=== PATIENT | male | born 1960 | race Caucasian/White ===

== ENCOUNTER 2017-04-02 08:50 | Emergency (ER) | payer OTHER ==
[2017-04-02] MEDS ORDERED: NORMAL SALINE 1000 ML 1,000 ML IV ONE (09:58)
[2017-04-02] MEDS ORDERED: FENTANYL CITRATE INJ/PF 100 MCG/2 ML AMPUL IV ONE ×2 (09:59→13:55)
[2017-04-02] MEDS ORDERED: ONDANSETRON HCL INJ/PF 4 MG/2 ML SDV IV ONE (10:00)
--- NOTE | 2017-04-02 10:02 | ER Document Report ---
ED General - General Chief Complaint: Abdominal Pain Stated Complaint: ABDOMINAL PAIN Time Seen by Provider: 04/02/17 09:51 Mode of Arrival: Ambulatory Information source: Patient Notes: Patient is a 57 year old male with a history of kidney stones presents to the emergency department complaining of right flank pain with an associated symptoms of nausea onset last night around 20:30. Patient states the pain is exacerbated with movement and bowel movements. Patient denies any strenuous activity, vomiting, hematuria, dysuria, or blood in stool. TRAVEL OUTSIDE OF THE [place] IN LAST 30 DAYS: No - Related Data Allergies/Adverse Reactions: No Known Allergies Allergy (Unverified 04/02/17 08:53) Past Medical History - General Information source: Patient - Social History Smoking Status: Unknown if Ever Smoked Review of Systems - Review of Systems Constitutional: No symptoms reported EENT: No symptoms reported Cardiovascular: No symptoms reported Respiratory: No symptoms reported Gastrointestinal: See HPI Genitourinary: See HPI, Flank pain Male Genitourinary: No symptoms reported Musculoskeletal: No symptoms reported Skin: No symptoms reported Hematologic/Lymphatic: No symptoms reported Neurological/Psychological: No symptoms reported -: Yes All other systems reviewed and negative Physical Exam - Vital signs Vitals: Temp Pulse Resp BP Pulse Ox 98.6 F 76 16 153/96 H 96 04/02/17 09:15 04/02/17 09:15 04/02/17 09:15 04/02/17 09:15 04/02/17 09:15 - Notes Notes: GENERAL: Alert, interacts well. No acute distress. HEAD: Normocephalic, atraumatic. EYES: Appear normal. Pupils equal, round, and reactive to light. ENT: Moist mucus membranes, tongue midline. NECK: Full range of motion. Supple. Trachea midline. LUNGS: Clear to auscultation bilaterally, no wheezes, rales, or rhonchi. No respiratory distress. HEART: Regular rate and rhythm. No murmurs, gallops, or rubs. EXTREMITIES: Moves all 4 extremities spontaneously. Normal strength. No edema. NEUROLOGICAL: Alert and oriented x3. Normal speech. PSYCH: Normal affect, normal mood. SKIN: Warm, dry, normal turgor. No rashes or lesions noted. BACK: Tender to palpation to lateral aspect of right flank. Course - Vital Signs Vital signs: Temp Pulse Resp BP Pulse Ox 98.6 F 76 16 153/96 H 96 04/02/17 09:15 04/02/17 09:15 04/02/17 09:49 04/02/17 09:15 04/02/17 09:15 - Laboratory Result Diagrams: 04/02/17 10:08 04/02/17 10:08 Laboratory results interpreted by me: 04/02/17 04/02/17 04/02/17 10:08 10:08 10:08 RDW 14.8 H Calcium 10.4 H AST 88 H ALT 129 H Lipase Urine Ascorbic Acid 20 H 04/02/17 10:08 RDW Calcium AST ALT Lipase 2164.4 H Urine Ascorbic Acid Scribe Documentation - Scribe Written by Adam:: Adam Al, 04/02/2017 10:03 acting as scribe for :: Manny
[2017-04-02 10:37] LABS: ABSOLUTE EOSINOPHILS # (AUTO) 0.3 10^3/uL (0.0-0.6); ABSOLUTE LYMPHOCYTES (AUTO) 2.9 10^3/uL (0.5-4.7); ABSOLUTE MONOCYTES (AUTO) 0.5 10^3/uL (0.1-1.4); ABSOLUTE NEUT (AUTO) 3.7 10^3/uL (1.7-8.2); BASOPHILS % (AUTO) 0.5 % (0-2); EOSINOPHILS % (AUTO) 3.6 % (0-6); HEMATOCRIT 45.9 % (37.9-51.0); HEMOGLOBIN 15.4 g/dL (13.5-17.0); LYMPHOCYTES % (AUTO) 38.9 % (13-45); MEAN CORPUSCULAR HEMOGLOBIN 28.1 pg (27.0-33.4); MEAN CORPUSCULAR HGB CONC 33.5 g/dL (32.0-36.0); MEAN CORPUSCULAR VOLUME 84 fl (80-97); MONOCYTES % (AUTO) 6.4 % (3-13); PLATELET COUNT 201 10^3/uL (150-450); RED BLOOD COUNT 5.47 10^6/uL (4.35-5.55); RED CELL DISTRIBUTION WIDTH 14.8 % (11.5-14.0); SEGMENTED NEUTROPHILS % (AUTO) 50.6 % (42-78); TOTAL CELLS COUNTED % (AUTO) 100 %; WHITE BLOOD COUNT 7.3 10^3/uL (4.0-10.5)
[2017-04-02 10:43] LABS: APPEARANCE,URINE SLIGHTLY-CLOUDY; BILIRUBIN,URINE NEGATIVE (NEGATIVE); COLOR,URINE YELLOW; GLUCOSE, URINE NEGATIVE (NEGATIVE); KETONES,URINE NEGATIVE (NEGATIVE); LEUKOCYTE ESTERASE,URINE NEGATIVE (NEGATIVE); NITRITE,URINE NEGATIVE (NEGATIVE); PROTEIN,URINE NEGATIVE (NEGATIVE); URINE SPECIFIC GRAVITY 1.014; UROBILINOGEN,URINE NEGATIVE mg/dL (<2.0)
[2017-04-02 11:01] LABS: ALANINE AMINOTRANSFERASE 129 U/L (21-72); ALBUMIN 4.9 g/dL (3.5-5.0); ALKALINE PHOSPHATASE 62 U/L (38-126); ANION GAP 10 (5-19); ASPARTATE AMINO TRANSFERASE 88 U/L (17-59); BILIRUBIN,DIRECT 0.4 mg/dL (0.0-0.4); BILIRUBIN,TOTAL 0.5 mg/dL (0.2-1.3); BLOOD UREA NITROGEN 14 mg/dL (7-20); CALCIUM 10.4 mg/dL (8.4-10.2); CARBON DIOXIDE 29 mmol/L (22-30); CHLORIDE 106 mmol/L (98-107); GLUCOSE 102 mg/dL (75-110); POTASSIUM 4.5 mmol/L (3.6-5.0); SODIUM 144.6 mmol/L (137-145)
--- NOTE | 2017-04-02 12:11 | RADIOLOGY REPORT (SQ) ---
EXAM DESCRIPTION: CT ABD/PELVIS WITH IV ONLY COMPLETED DATE/TIME: 04/02/2017 11:45 am REASON FOR STUDY: R flank pain radiating to groin COMPARISON: None. TECHNIQUE: CT scan of the abdomen and pelvis performed using helical scanning technique with dynamic intravenous contrast injection. No oral contrast. Images reviewed with lung, soft tissue, and bone windows. Reconstructed coronal and sagittal MPR images reviewed. Delayed images for evaluation of the urinary system also acquired. All images stored on PACS. All CT scanners at this facility use dose modulation, iterative reconstruction, and/or weight based d osing when appropriate to reduce radiation dose to as low as reasonably achievable (ALARA). [facility]: Dose Right [facility]: CareDose [facility]: Dose Right [facility]: Teradose 4D [facility]: [facility] CONTRAST TYPE AND DOSE: contrast/concentration: Isovue 370.00 mg/ml; Total Contrast Delivered: 100.0 ml; Total Saline Delivered: 70.0 ml RENAL FUNCTION: BUN 14 creatinine 1.09. RADIATION DOSE: CT Rad equipment meets quality standard of care and radiation dose reduction techniq ues were employed. CTDIvol: 14.3 - 18.6 mGy. DLP: 1927 mGy-cm.. LIMITATIONS: None. FINDINGS: LOWER CHEST: No significant findings. No nodules or infiltrates. LIVER: Normal size. Marked diffuse fatty infiltration. No masses. No dilated ducts. SPLEEN: Normal size. No focal lesions. PANCREAS: No masses. No significant calcifications. No adjacent inflammation or peripancreatic fluid collections. Pancreatic duct not dilated. GALLBLADDER: No identified stones by CT criteria. No inflammatory changes to suggest cholecystitis. ADRENAL GLANDS: No significant masses or asymmetry. RIGHT KIDNEY AND URETER: No solid masses. No significant calcifications. No hydronephrosis or hyd roureter. LEFT KIDNEY AND URETER: No solid masses. No significant calcifications. No hydronephrosis or hydr oureter. AORTA AND VESSELS: No aneurysm. No dissection. Renal arteries, SMA, celiac without stenosis. RETROPERITONEUM: No retroperitoneal adenopathy, hemorrhage or masses. BOWEL AND PERITONEAL CAVITY: No masses or inflammatory changes. No free fluid or peritoneal masses. APPENDIX: Normal. PELVIS: No mass. Heterogenous nodular appearance of the prostate with a few calcifications. No free fluid. Normal bladder. ABDOMINAL WALL: No masses. No hernias. BONES: No significant or acute findings. OTHER: No other significant finding. IMPRESSION: 1. MARKED DIFFUSE FATTY INFILTRATION OF THE LIVER. 2. NONSPECIFIC HETEROGENOUS NODULAR APPEARANCE OF THE PROSTATE. 3. NO OTHER SIGNIFICANT OR ACUTE FINDING IN THE ABDOMEN OR PELVIS ON CT SCAN WITH IV CONTRAST. TECHNICAL DOCUMENTATION: JOB ID: [id number] Quality ID # [id number]: Final reports with documentation of one or more dose reduction techniques (e.g., Au tomated exposure control, adjustment of the mA and/or kV according to patient size, use of iterative reconstruction technique) 2010 [employer]- All Rights Reserved
--- NOTE | 2017-04-02 12:42 | ER Document Report ---
ED GI/ - General Chief Complaint: Abdominal Pain Stated Complaint: ABDOMINAL PAIN Time Seen by Provider: 04/02/17 09:51 Mode of Arrival: Ambulatory Information source: Patient TRAVEL OUTSIDE OF THE [place] IN LAST 30 DAYS: No - HPI Patient complains to provider of: Flank pain - RIGHT Onset: Yesterday - LAST PM Timing/Duration: Sudden Quality of pain: Dull Severity at maximum: Moderate Severity in ED: Moderate Context: denies: Bad food, Lifting, Out of the country travel, Recent trauma Location: Right flank Associated symptoms: Nausea. denies: Chills, Constipation, Diarrhea, Fever, Vomiting Exacerbated by: Coughing, Other - VALSALVA Relieved by: Remaining still Similar symptoms previously: No - A LITTLE SIMILAR TO "KIDNEY STONE" Recently seen / treated by doctor: No - Related Data Allergies/Adverse Reactions: No Known Allergies Allergy (Unverified 04/02/17 08:53) Past Medical History - General Information source: Patient - Social History Smoking Status: Unknown if Ever Smoked Chew tobacco use (# tins/day): No Frequency of alcohol use: None Drug Abuse: Marijuana Lives with: Spouse/Significant other Family History: None Patient has suicidal ideation: No Patient has homicidal ideation: No - Past Medical History Cardiac Medical History: Reports: None Pulmonary Medical History: Reports: None EENT Medical History: Reports: None Neurological Medical History: Reports: None Endocrine Medical History: Reports: None Renal/ Medical History: Reports: None. Denies: Hx Peritoneal Dialysis Malignancy Medical History: Reports None GI Medical History: Reports: Hx Gastroesophageal Reflux Disease Musculoskeltal Medical History: Reports None Psychiatric Medical History: Reports: None Past Surgical History: Reports: Hx Abdominal Surgery - LAP. FUNDOPLICATION, Hx Kidney (Renal Surgery) - kidney stents for stones, Hx Orthopedic Surgery - bilateral knees Review of Systems - Review of Systems Constitutional: No symptoms reported. denies: Chills, Fever EENT: No symptoms reported Cardiovascular: No symptoms reported Respiratory: No symptoms reported Gastrointestinal: See HPI Genitourinary: No symptoms reported Musculoskeletal: No symptoms reported Skin: No symptoms reported Neurological/Psychological: No symptoms reported Physical Exam - Vital signs Vitals: Temp Pulse Resp BP Pulse Ox 98.6 F 76 16 153/96 H 96 04/02/17 09:15 04/02/17 09:15 04/02/17 09:15 04/02/17 09:15 04/02/17 09:15 Interpretation: Hypertensive. No: Tachycardic, Tachypneic, Febrile - General General appearance: Appears well, Alert In distress: None - HEENT Head: Normocephalic Eyes: Normal Conjunctiva: Normal Ears: Normal Nasal: Normal Mouth/Lips: Normal Mucous membranes: Normal - Respiratory Respiratory status: No respiratory distress - Cardiovascular Rhythm: Regular - Abdominal Inspection: Normal Distension: No distension Bowel sounds: Hypoactive Tenderness: Tender - MILD, R. FLANK AND R.U.Q. - Back Back: Normal, Nontender - Extremities General upper extremity: Normal inspection General lower extremity: Normal inspection - Neurological Neuro grossly intact: Yes Cognition: Normal Orientation: AAOx4 - Psychological Associated symptoms: Normal affect, Normal mood - Skin Skin Temperature: Warm Skin Moisture: Dry Skin Color: Normal Skin Turgor: Elastic Course - Re-evaluation Re-evalutation: 04/02/17 15:32 Patient appears comfortable. Results of workup discussed with patient. Admission for pain control and IV hydration offered, patient declines. Risks and possible complications discussed. Patient agrees to return if worse, otherwise he will follow-up with Dr. Todd. Discussed with Dr. Todd. - Vital Signs Vital signs: Temp Pulse Resp BP Pulse Ox 98.6 F 76 16 153/96 H 96 04/02/17 09:15 04/02/17 09:15 04/02/17 09:49 04/02/17 09:15 04/02/17 09:15 - Laboratory Result Diagrams: 04/02/17 10:08 04/02/17 10:08 Laboratory results interpreted by me: 04/02/17 04/02/17 04/02/17 10:08 10:08 10:08 RDW 14.8 H Calcium 10.4 H AST 88 H ALT 129 H Lipase Urine Ascorbic Acid 20 H 04/02/17 10:08 RDW Calcium AST ALT Lipase 2164.4 H Urine Ascorbic Acid - Consults DR. TODD Time consulted: 15:20 Consulted provider: follow-up in office Discharge - Discharge Clinical Impression: Abnormal LFTs Pancreatitis, acute Qualifiers: Pancreatitis type: idiopathic Acute pancreatitis complication: unspecified Qualified Code(s): K85.00 - Idiopathic acute pancreatitis without necrosis or infection Condition: Stable Disposition: HOME, SELF-CARE Instructions: Pancreatitis ([facility]), Antinausea Medication ([facility]), Oral Narcotic Medication ([facility]), Liver Function Abnormality ([facility]) Additional Instructions: REST, DRINK PLENTY OF FLUIDS. MEDS DIRECTED. FOLLOW UP WITH DR. TODD, CALL OFFICE TOMORROW A.M. TO MAKE APPOINTMENT. RETURN TO E.R. IF YOU GET WORSE IN ANY WAY, ANY TIME. Prescriptions: Hydromorphone HCl [Dilaudid 2 Mg Tablet] 2 mg PO Q4HP PRN #10 tablet PRN Reason: For Pain Ondansetron [Zofran Odt 4 mg Tablet] 1 - 2 tab PO Q4H #10 tab.rapdis Referrals: KENIA TODD MD [ACTIVE STAFF] - Follow up as needed
[2017-04-02] MEDS ORDERED: KETOROLAC TROMETHAMINE INJ/PF 30 MG/1 ML SDV IV ONE (13:54)
--- NOTE | 2017-04-02 14:27 | RADIOLOGY REPORT (SQ) ---
EXAM DESCRIPTION: U/S ABDOMEN LIMITED W/O DOP COMPLETED DATE/TIME: 04/02/2017 2:16 pm REASON FOR STUDY: R. FLANK PAIN, ELEVATED LIPASE LFT's COMPARISON: None. TECHNIQUE: Dynamic and static grayscale images acquired of the right upper quadrant and recorded on PACS. Additional selected color Doppler and spectral images recorded. LIMITATIONS: Study limited due to acoustical interference from fat or from air in the bowel. FINDINGS: PANCREAS: Parts of the pancreas poorly seen secondary to acoustical interference from fat or from air in the bowel. LIVER: Echotexture is coarse with increased echogenicity consistent with fatty infiltration. No mass es. LIVER VASCULATURE: Normal directional flow of the main portal vein and hepatic veins. GALLBLADDER: Small amount of sludge. Normal wall thickness. No pericholecystic fluid. ULTRASOUND-DETECTED BARNHART'S SIGN: Negative. INTRAHEPATIC DUCTS AND COMMON DUCT: CBD and intrahepatic ducts normal caliber. No filling defects. INFERIOR VENA CAVA: Normal flow. AORTA: No aneurysm. RIGHT KIDNEY: Normal size. Normal echogenicity. No solid or suspicious masses. No hydronephrosis. No calcifications. PERITONEAL CAVITY AND RIGHT PLEURAL SPACE: No ascites or effusions. OTHER: No other significant finding. IMPRESSION: 1. SMALL AMOUNT OF SLUDGE IN THE GALLBLADDER. NO BILIARY DILATION OR OTHER ACUTE FINDINGS. 2. FATTY INFILTRATION OF THE LIVER. TECHNICAL DOCUMENTATION: JOB ID: [id number] [employer]- All Rights Reserved
[2017-04-02 15:50] VITALS: BP 139/98
== END 2017-04-02 15:50 | disposition home or self-care (01) ==
LOC: ER 08:50
DX: K85.00 Idiopathic acute pancreatitis without necrosis or infection (principal); R94.5 Abnormal results of liver function studies; R10.9 Unspecified abdominal pain
CPT/HCPCS: 99284; 96361; 96374; 96375; 36415; 83690; 85025; 80053; 81001; 76705; 74177; J3010; J2405; J7030

== ENCOUNTER 2017-04-03 17:33 | Observation (INO) | payer OTHER ==
--- NOTE | 2017-04-03 18:14 | ER Document Report ---
ED Medical Screen (RME) - General Chief Complaint: Abdominal Pain Stated Complaint: ABDOMINAL PAIN Time Seen by Provider: 04/03/17 18:04 Notes: This 57-year-old male patient comes emergency room complaining of severe pain in his right inferior lateral ribs. He reports coughing and making considerably worse. He was seen yesterday for similar pain in this emergency room and had a lipase just over 1999. He had a CT scan abdomen pelvis that was essentially normal sent for fatty infiltration of the liver. The pancreas showed no inflammation at all. Ultrasound of the right upper quadran showed some gallbladder sludge and fatty liver, no other abnormality. He did receive a prescription for Dilaudid that he has not filled yet, because his pain was more off and on yesterday until he coughed today. On exam at this time, there is no epigastric or mid abdominal tenderness over the pancreas area even with deep palpation. He is exquisitely tender over the right lateral inferior ribs to palpation. I have greeted and performed a rapid initial assessment of this patient. A comprehensive ED assessment and evaluation of the patient, analysis of test results and completion of the medical decision making process will be conducted by additional ED providers. TRAVEL OUTSIDE OF THE [place] IN LAST 30 DAYS: No - Related Data Allergies/Adverse Reactions: No Known Allergies Allergy (Verified 04/03/17 17:34) Past Medical History - Social History Chew tobacco use (# tins/day): No Frequency of alcohol use: None Drug Abuse: Marijuana Renal/ Medical History: Denies: Hx Peritoneal Dialysis GI Medical History: Reports: Hx Gastroesophageal Reflux Disease Past Surgical History: Reports: Hx Abdominal Surgery - LAP. FUNDOPLICATION, Hx Kidney (Renal Surgery) - kidney stents for stones, Hx Orthopedic Surgery - bilateral knees Physical Exam - Vital signs Vitals: Temp Pulse BP Pulse Ox 98.7 F 79 143/80 H 97 04/03/17 17:51 04/03/17 17:51 04/03/17 17:51 04/03/17 17:51 Course - Vital Signs Vital signs: Temp Pulse Resp BP Pulse Ox 98.7 F 79 143/80 H 97 04/03/17 17:51 04/03/17 17:51 04/03/17 17:51 04/03/17 17:51
[2017-04-03 18:38] LABS: ABSOLUTE EOSINOPHILS # (AUTO) 0.2 10^3/uL (0.0-0.6); ABSOLUTE LYMPHOCYTES (AUTO) 2.9 10^3/uL (0.5-4.7); ABSOLUTE MONOCYTES (AUTO) 0.5 10^3/uL (0.1-1.4); ABSOLUTE NEUT (AUTO) 3.7 10^3/uL (1.7-8.2); BASOPHILS % (AUTO) 0.6 % (0-2); EOSINOPHILS % (AUTO) 2.6 % (0-6); HEMATOCRIT 43.7 % (37.9-51.0); HEMOGLOBIN 14.6 g/dL (13.5-17.0); LYMPHOCYTES % (AUTO) 39.5 % (13-45); MEAN CORPUSCULAR HEMOGLOBIN 27.8 pg (27.0-33.4); MEAN CORPUSCULAR HGB CONC 33.4 g/dL (32.0-36.0); MEAN CORPUSCULAR VOLUME 83 fl (80-97); MONOCYTES % (AUTO) 7.2 % (3-13); PLATELET COUNT 195 10^3/uL (150-450); RED BLOOD COUNT 5.25 10^6/uL (4.35-5.55); RED CELL DISTRIBUTION WIDTH 14.6 % (11.5-14.0); SEGMENTED NEUTROPHILS % (AUTO) 50.1 % (42-78); TOTAL CELLS COUNTED % (AUTO) 100 %; WHITE BLOOD COUNT 7.3 10^3/uL (4.0-10.5)
[2017-04-03 18:57] LABS: ALANINE AMINOTRANSFERASE 118 U/L (21-72); ALBUMIN 4.6 g/dL (3.5-5.0); ALKALINE PHOSPHATASE 60 U/L (38-126); AMYLASE 646 U/L (30-110); ANION GAP 8 (5-19); ASPARTATE AMINO TRANSFERASE 60 U/L (17-59); BILIRUBIN,DIRECT 0.2 mg/dL (0.0-0.4); BILIRUBIN,TOTAL 0.4 mg/dL (0.2-1.3); BLOOD UREA NITROGEN 14 mg/dL (7-20); CALCIUM 10.2 mg/dL (8.4-10.2); CARBON DIOXIDE 26 mmol/L (22-30); CHLORIDE 105 mmol/L (98-107); CREATINE KINASE 270 U/L (55-170); GLUCOSE 79 mg/dL (75-110); POTASSIUM 4.4 mmol/L (3.6-5.0); SODIUM 138.8 mmol/L (137-145); TOTAL PROTEIN 7.3 g/dL (6.3-8.2)
[2017-04-03 19:17] LABS: APPEARANCE,URINE CLEAR; BILIRUBIN,URINE NEGATIVE (NEGATIVE); COLOR,URINE YELLOW; GLUCOSE, URINE NEGATIVE (NEGATIVE); KETONES,URINE NEGATIVE (NEGATIVE); LEUKOCYTE ESTERASE,URINE NEGATIVE (NEGATIVE); NITRITE,URINE NEGATIVE (NEGATIVE); PROTEIN,URINE NEGATIVE (NEGATIVE); URINE SPECIFIC GRAVITY 1.005; UROBILINOGEN,URINE NEGATIVE mg/dL (<2.0)
[2017-04-03 19:28] LABS: LIPASE 4099.1 U/L (23-300)
--- NOTE | 2017-04-03 19:43 | ER Document Report ---
ED GI/ - General Chief Complaint: Abdominal Pain Stated Complaint: ABDOMINAL PAIN Time Seen by Provider: 04/03/17 18:04 Mode of Arrival: Medic Information source: Patient Notes: Patient presents complaining of right-sided abdominal pain that had been off and on since yesterday but became constant today after he coughed. Patient states he drinks some water, choked and coughed suddenly and had a sharp pain to his lateral side. Patient denies any fever, nausea, vomiting or diarrhea. Patient denies any urinary symptoms. Patient was evaluated here yesterday and diagnosed with pancreatitis and given a prescription for pain medication. States he has not had time to go to the pharmacy to get the pain medication. TRAVEL OUTSIDE OF THE [place] IN LAST 30 DAYS: No - HPI Patient complains to provider of: Abdominal pain. No: Vomiting Onset: Yesterday Timing/Duration: Worse Quality of pain: Sharp Pain Level: 5 Location: Other - Right lateral side Associated symptoms: denies: Diarrhea, Loss of appetite, Nausea, Urinary hesitancy, Urinary frequency, Urinary retention, Vomiting Exacerbated by: Movement, Deep breathing Relieved by: Denies Similar symptoms previously: No Recently seen / treated by doctor: Yes - Related Data Allergies/Adverse Reactions: No Known Allergies Allergy (Verified 04/03/17 17:34) Past Medical History - General Information source: Patient - Social History Smoking Status: Former Smoker Chew tobacco use (# tins/day): No Frequency of alcohol use: None Drug Abuse: Marijuana Occupation: none Family History: None Patient has suicidal ideation: No Patient has homicidal ideation: No Renal/ Medical History: Denies: Hx Peritoneal Dialysis GI Medical History: Reports: Hx Gastroesophageal Reflux Disease Past Surgical History: Reports: Hx Abdominal Surgery - LAP. FUNDOPLICATION, Hx Kidney (Renal Surgery) - kidney stents for stones, Hx Orthopedic Surgery - bilateral knees Review of Systems - Review of Systems Constitutional: No symptoms reported. denies: Fever, Recent illness EENT: No symptoms reported Cardiovascular: No symptoms reported Respiratory: No symptoms reported Gastrointestinal: Abdominal pain. denies: Diarrhea, Nausea, Vomiting Genitourinary: No symptoms reported. denies: Dysuria, Flank pain Male Genitourinary: No symptoms reported Musculoskeletal: No symptoms reported. denies: Back pain Skin: No symptoms reported Hematologic/Lymphatic: No symptoms reported Neurological/Psychological: No symptoms reported Physical Exam - Vital signs Vitals: Temp Pulse BP Pulse Ox 98.7 F 79 143/80 H 97 04/03/17 17:51 04/03/17 17:51 04/03/17 17:51 04/03/17 17:51 - General General appearance: Appears well, Alert In distress: None - HEENT Head: Normocephalic Conjunctiva: Normal Nasal: Normal Mouth/Lips: Normal Mucous membranes: Normal Neck: Normal, Supple. No: Lymphadenopathy - Respiratory Respiratory status: No respiratory distress Chest status: Nontender Breath sounds: Normal Chest palpation: Tender - Right lateral lower costal tenderness with palpation. No: Subcutaneous emphysema, Ecchymosis - Cardiovascular Rhythm: Regular Heart sounds: S1 appreciated, S2 appreciated Murmur: No - Abdominal Inspection: Normal Distension: No distension Bowel sounds: Normal Tenderness: Tender - epigastric, r lateral lower costal tenderness Organomegaly: No organomegaly - Back Back: CVA tenderness - right - Extremities General upper extremity: Normal inspection, Nontender, Normal ROM General lower extremity: Normal inspection, Nontender, Normal ROM - Neurological Neuro grossly intact: Yes Cognition: Normal Conway Coma Scale Eye Opening: Spontaneous Abner Coma Scale Verbal: Oriented Abner Coma Scale Motor: Obeys Commands Abner Coma Scale Total: 15 - Psychological Associated symptoms: Normal affect, Normal mood - Skin Skin Temperature: Warm Skin Moisture: Dry Skin Color: Normal Course - Re-evaluation Re-evalutation: 04/03/17 20:00 Patient's abdominal tenderness to right lateral lower costal margin with mild tenderness to epigastric area. Patient states he has been able tolerate oral fluids without any emesis. Patient denies any fever at home. Consulted with Dr. Guzman regarding patient presentation, recommends consultation with hospitalist for admission for concern of worsening pancreatitis that is failing outpatient treatment. 04/03/17 20:[address] Lockhart who does agree to accept patient as an inpatient admission. 04/04/17 07:16 - Vital Signs Vital signs: Temp Pulse Resp BP Pulse Ox 97.5 F 71 16 138/90 H 96 04/04/17 02:27 04/04/17 02:27 04/04/17 02:27 04/04/17 02:27 04/04/17 02:27 - Laboratory Result Diagrams: 04/04/17 04:26 04/04/17 04:26 Laboratory results interpreted by me: 04/03/17 04/03/17 18:20 18:20 RDW 14.6 H AST 60 H ALT 118 H Creatine Kinase 270 H Amylase 646 H Lipase 4099.1 H 04/03/17 20:14 Labs- Entire Visit 04/03/17 04/03/17 04/03/17 18:20 18:20 18:20 WBC 7.3 RBC 5.25 Hgb 14.6 Hct 43.7 MCV 83 MCH 27.8 MCHC 33.4 RDW 14.6 H Plt Count 195 Seg Neutrophils % 50.1 Lymphocytes % 39.5 Monocytes % 7.2 Eosinophils % 2.6 Basophils % 0.6 Absolute Neutrophils 3.7 Absolute Lymphocytes 2.9 Absolute Monocytes 0.5 Absolute Eosinophils 0.2 Absolute Basophils 0.0 Sodium 138.8 Potassium 4.4 Chloride 105 Carbon Dioxide 26 Anion Gap 8 BUN 14 Creatinine 1.07 Est GFR ( Amer) > 60 Est GFR (Non-Af Amer) > 60 Glucose 79 Calcium 10.2 Total Bilirubin 0.4 Direct Bilirubin 0.2 Neonat Total Bilirubin Not Reportable Neonat Direct Bilirubin Not Reportable Neonat Indirect Bili Not Reportable AST 60 H ALT 118 H Alkaline Phosphatase 60 Creatine Kinase 270 H Total Protein 7.3 Albumin 4.6 Amylase 646 H Lipase 4099.1 H Urine Color YELLOW Urine Appearance CLEAR Urine pH 6.0 Ur Specific Eleanor 1.005 Urine Protein NEGATIVE Urine Glucose (UA) NEGATIVE Urine Ketones NEGATIVE Urine Blood NEGATIVE Urine Nitrite NEGATIVE Urine Bilirubin NEGATIVE Urine Urobilinogen NEGATIVE Ur Leukocyte Esterase NEGATIVE Urine WBC (Auto) 0 Urine RBC (Auto) 0 Urine Ascorbic Acid NEGATIVE Reviewed diagnostic test results from previous ER visit - Diagnostic Test Radiology reviewed: Reports reviewed - Reviewed radiology reports from yesterday 's ER visit Discharge - Discharge Clinical Impression: Pancreatitis, acute Qualifiers: Pancreatitis type: unspecified pancreatitis type Acute pancreatitis complication: unspecified Qualified Code(s): K85.90 - Acute pancreatitis without necrosis or infection, unspecified Abdominal pain Qualifiers: Abdominal location: unspecified location Qualified Code(s): R10.9 - Unspecified abdominal pain Condition: Stable Disposition: ADMITTED INPATIENT Admitting Provider: Hospitalist Unit Admitted: Medical Floor
[2017-04-03] MEDS ORDERED: LIDOCAINE 5% (700 MG) TRANSDERMAL ADH..PATCH TP ONE (19:52)
[2017-04-03] MEDS ORDERED: OXYCODONE-ACETAMINOPHEN 5-325 MG TABLET PO ONE (19:53)
[2017-04-03] MEDS ORDERED: HYDROMORPHONE HCL INJ/PF 2 MG/ML AMPULE IV ONE (20:04)
[2017-04-03] MEDS ORDERED: NORMAL SALINE 1000 ML 1,000 ML IV ONE (20:04)
--- NOTE | 2017-04-03 20:33 | RADIOLOGY REPORT (SQ) ---
EXAM DESCRIPTION: CHEST PA/LAT COMPLETED DATE/TIME: 04/03/2017 8:21 pm REASON FOR STUDY: cough, r lower rib tenderness COMPARISON: None. EXAM PARAMETERS: NUMBER OF VIEWS: two views TECHNIQUE: Digital Frontal and Lateral radiographic views of the chest acquired. RADIATION DOSE: NA LIMITATIONS: none FINDINGS: LUNGS AND PLEURA: No opacities, masses or pneumothorax. No pleural effusion. MEDIASTINUM AND HILAR STRUCTURES: No masses or contour abnormalities. HEART AND VASCULAR STRUCTURES: Heart normal size. No evidence for failure. BONES: No acute findings. HARDWARE: None in the chest. OTHER: No other significant finding. IMPRESSION: NO SIGNIFICANT RADIOGRAPHIC FINDING IN THE CHEST. TECHNICAL DOCUMENTATION: JOB ID: [id number] [employer]- All Rights Reserved
[2017-04-03] MEDS ORDERED: DEXTROSE 40% GEL 15 GM TUBE PO PRN ×2 (23:05)
[2017-04-03] MEDS ORDERED: ONDANSETRON HCL INJ/PF 4 MG/2 ML SDV IV PRN (23:05)
[2017-04-03] MEDS ORDERED: MAGNESIUM HYDROXIDE SUSP 30 ML UDCUP PO PRN (23:05)
[2017-04-03] MEDS ORDERED: GLUCAGON,HUMAN RECOMB 1 MG INJ SUBCUT PRN (23:05)
[2017-04-03] MEDS ORDERED: DEXTROSE 50%-WATER 25 GM/50 ML DISP.SYRIN IV PRN ×2 (23:05)
[2017-04-03] MEDS ORDERED: HYDROMORPHONE HCL 2 MG TABLET PO PRN (23:12)
--- NOTE | 2017-04-03 23:25 | PDOC H&P ---
History of Present Illness Admission Date/PCP: 04/03/17 20:29 SHAWN ZAMAN MD Patient complains of: Right flank pain History of Present Illness: VIKRAM LOVELL is a 57 year old male with a past medical history of elevated pancreatic enzymes. The he was first told several months ago of elevated lipase in [place]. He has recently seen a local seismic survey assistant. He is scheduled for a repeat visit on Thursday of next week. Patient relates that he had a coughing fit when he accidentally swallowed the wrong way. Following that he had pain in his right flank. He presented to the emergency room where he was found to have doubled his lipase since the day before. He is referred to us for further management. Past Medical History Cardiac Medical History: Reports: None Pulmonary Medical History: Reports: None EENT Medical History: Reports: None Neurological Medical History: Reports: None Endocrine Medical History: Reports: None Renal/ Medical History: Reports: Nephrolithiasis Malignancy Medical History: Reports: None GI Medical History: Reports: Gastroesophageal Reflux Disease, Other - Elevated pancreas enzymes Musculoskeltal Medical History: Reports: None Skin Medical History: Reports: None Psychiatric Medical History: Reports: Post Traumatic Stress Disorder Traumatic Medical History: Reports: None Hematology: Reports: None Infectious Medical History: Reports: None Past Surgical History Past Surgical History: Reports: Orthopedic Surgery - bilateral knees Social History Information Source: Patient Lives with: Family Smoking Status: Former Smoker Frequency of Alcohol Use: None Hx Recreational Drug Use: Yes Drugs: Marijuana Hx Prescription Drug Abuse: No Past Social History Note: several months ago from cardiac causes - Advance Directive Resuscitation Status: Full Code Family History Family History: None, Reviewed & Not Pertinent Parental Family History Reviewed: Yes Children Family History Reviewed: Yes Sibling(s) Family History Reviewed.: Yes Medication/Allergy Home Medications: Hydromorphone HCl [Dilaudid 2 Mg Tablet] 2 mg PO Q4HP PRN #10 tablet 04/02/17 Ondansetron [Zofran Odt 4 mg Tablet] 1 - 2 tab PO Q4H #10 tab.rapdis 04/02/17 Doxepin HCl [Sinequan 25 mg Capsule] 25 mg PO DAILY 04/03/17 Allergies/Adverse Reactions: No Known Allergies Allergy (Verified 04/03/17 17:34) Review of Systems Constitutional: ABSENT: chills, fever(s), headache(s), weight gain, weight loss Eyes: ABSENT: visual disturbances Ears: ABSENT: hearing changes Nose, Mouth, and Throat: ABSENT: mouth pain, sore throat Cardiovascular: ABSENT: chest pain, dyspnea on exertion, edema, orthropnea, palpitations Respiratory: ABSENT: cough, hemoptysis Gastrointestinal: PRESENT: as per HPI Genitourinary: ABSENT: dysuria, hematuria Musculoskeletal: ABSENT: joint swelling Integumentary: ABSENT: rash, wounds Neurological: ABSENT: abnormal gait, abnormal speech, confusion, dizziness, focal weakness, syncope Psychiatric: PRESENT: anxiety, depression Endocrine: ABSENT: cold intolerance, heat intolerance, polydipsia, polyuria Hematologic/Lymphatic: ABSENT: easy bleeding, easy bruising Physical Exam Vital Signs: Temp Pulse Resp BP Pulse Ox 98.3 F 73 109/60 98 04/03/17 22:27 04/03/17 22:27 04/03/17 22:27 04/03/17 22:27 Intake & Output 04/02/17 04/03/17 04/04/17 06:59 06:59 06:59 Weight 102.965 kg General appearance: PRESENT: no acute distress, cooperative, well-developed, well-nourished Head exam: PRESENT: atraumatic, normocephalic Eye exam: PRESENT: conjunctiva pink, EOMI, PERRLA Ear exam: PRESENT: normal external ear exam Neck exam: ABSENT: carotid bruit, JVD, lymphadenopathy, thyromegaly Respiratory exam: PRESENT: clear to auscultation justen. ABSENT: rales, rhonchi, wheezes Cardiovascular exam: PRESENT: RRR. ABSENT: diastolic murmur, rubs, systolic murmur GI/Abdominal exam: PRESENT: normal bowel sounds, soft. ABSENT: distended, guarding, mass, organolmegaly, rebound, tenderness Rectal exam: PRESENT: deferred Extremities exam: PRESENT: full ROM. ABSENT: calf tenderness, clubbing, pedal edema Musculoskeletal exam: PRESENT: full ROM, normal inspection Neurological exam: PRESENT: alert, awake, oriented to person, oriented to place , oriented to time, oriented to situation, CN II-XII grossly intact. ABSENT: motor sensory deficit Psychiatric exam: PRESENT: appropriate affect, normal mood. ABSENT: homicidal ideation, suicidal ideation Skin exam: PRESENT: dry, intact, warm. ABSENT: cyanosis, rash Results Laboratory Results: 04/03/17 04/03/17 18:20 18:20 WBC 7.3 Hgb 14.6 Hct 43.7 Plt Count 195 Sodium 138.8 Potassium 4.4 Carbon Dioxide 26 BUN 14 Creatinine 1.07 AST 60 H ALT 118 H Creatine Kinase 270 H Amylase 646 H Lipase 4099.1 H Impressions: Chest X-Ray 04/03/17 20:04 IMPRESSION: NO SIGNIFICANT RADIOGRAPHIC FINDING IN THE CHEST. Assessment & Plan - Diagnosis (1) Flank pain Is this a current diagnosis for this admission?: Yes (2) Idiopathic chronic pancreatitis Is this a current diagnosis for this admission?: Yes (3) Relapsing chronic pancreatitis Is this a current diagnosis for this admission?: Yes (4) Abnormal LFTs Is this a current diagnosis for this admission?: Yes - Time Time Spent: 30 to 50 Minutes - Plan Summary Plan Summary: Patient presents with exacerbation of what appears to be chronic pancreatitis. He is being followed by a seismic survey assistant. We will make him n.p.o. for tonight and advance diet in the morning as the patient is currently asymptomatic with regards to his pancreas. His pain appears to be muscular from his coughing spell. He is having satisfactory response to a Lidoderm patch. Patient will have DVT prophylaxis with low molecular weight heparin. Anticipated length of stay is fewer than 2 midnights
[2017-04-03] MEDS ORDERED: DOXEPIN HCL 25 MG CAPSULE PO ONE (23:30)
[2017-04-04 00:49] LABS: APPEARANCE,URINE CLEAR; BILIRUBIN,URINE NEGATIVE (NEGATIVE); COLOR,URINE YELLOW; GLUCOSE, URINE NEGATIVE (NEGATIVE); KETONES,URINE 20 mg/dL (NEGATIVE); LEUKOCYTE ESTERASE,URINE NEGATIVE (NEGATIVE); NITRITE,URINE NEGATIVE (NEGATIVE); PROTEIN,URINE NEGATIVE (NEGATIVE); URINE SPECIFIC GRAVITY 1.011; UROBILINOGEN,URINE NEGATIVE mg/dL (<2.0)
[2017-04-04] MEDS: RINGERS SOLUTION,LACTATED 1,000 ML IV PRN ×3 (02:20→18:55)
[2017-04-04 05:27] LABS: HEMATOCRIT 39.2 % (37.9-51.0); HEMOGLOBIN 13.1 g/dL (13.5-17.0); MEAN CORPUSCULAR HGB CONC 33.4 g/dL (32.0-36.0); MEAN CORPUSCULAR VOLUME 84 fl (80-97); PLATELET COUNT 169 10^3/uL (150-450); RED BLOOD COUNT 4.67 10^6/uL (4.35-5.55); RED CELL DISTRIBUTION WIDTH 14.6 % (11.5-14.0); WHITE BLOOD COUNT 6.7 10^3/uL (4.0-10.5)
[2017-04-04 05:42] LABS: ANION GAP 6 (5-19); BLOOD UREA NITROGEN 13 mg/dL (7-20); CALCIUM 9.5 mg/dL (8.4-10.2); CARBON DIOXIDE 27 mmol/L (22-30); CHLORIDE 108 mmol/L (98-107); CHOLESTEROL 137.92 mg/dL (0-200); GLUCOSE 91 mg/dL (75-110); SODIUM 140.9 mmol/L (137-145); TRIGLYCERIDES 83 mg/dL (<150)
[2017-04-04 05:53] LABS: DIRECT LDL 88 mg/dL (<100)
[2017-04-04] MEDS: FAMOTIDINE INJ/PF 20 MG/2 ML SDV IV SCH ×2 (09:48→22:06)
[2017-04-04] MEDS ORDERED: DOCUSATE SODIUM 100 MG CAPSULE PO SCH (10:00)
[2017-04-04] MEDS ORDERED: ENOXAPARIN SODIUM INJ 40 MG/0.4 ML DISP.SYRIN SUBCUT SCH (10:00)
--- NOTE | 2017-04-04 11:51 | PDOC PROGRESS REPORT ---
Subjective Progress Note for:: 04/04/17 Subjective:: Patient refers that he is barely having any pain on the left side. The pain on the right side is gone. He would like to go home soon. Review of system All organ systems evaluated and negative except as in subjective All laboratories and significant diagnostics have been reviewed Reason For Visit: PANCREATITIS Physical Exam Vital Signs: Temp Pulse Resp BP Pulse Ox 97.5 F 71 16 138/90 H 96 04/04/17 02:27 04/04/17 02:27 04/04/17 02:27 04/04/17 02:27 04/04/17 02:27 Intake & Output 04/03/17 04/04/17 04/05/17 06:59 06:59 06:59 Weight 102.9 kg General appearance: PRESENT: no acute distress, cooperative, obese Head exam: PRESENT: atraumatic, normocephalic Eye exam: PRESENT: EOMI, PERRLA Ear exam: PRESENT: normal external ear exam, TM's normal bilaterally Mouth exam: PRESENT: moist, neck supple Neck exam: PRESENT: full ROM. ABSENT: JVD, lymphadenopathy Respiratory exam: PRESENT: clear to auscultation justen Cardiovascular exam: PRESENT: RRR. ABSENT: diastolic murmur, systolic murmur Vascular exam: PRESENT: normal capillary refill GI/Abdominal exam: PRESENT: normal bowel sounds, soft, tenderness - Very mild left upper quadrant tenderness Extremities exam: PRESENT: full ROM. ABSENT: pedal edema, tenderness Musculoskeletal exam: PRESENT: ambulatory, full ROM Neurological exam: PRESENT: alert, awake, oriented to person, oriented to place , oriented to time, oriented to situation, CN II-XII grossly intact Psychiatric exam: PRESENT: appropriate affect, normal mood Skin exam: PRESENT: intact, normal color Results Laboratory Results: 04/04/17 04:26 04/04/17 04:26 04/04/17 04/04/17 04/04/17 00:25 04:26 04:26 WBC 6.7 RBC 4.67 Hgb 13.1 L Hct 39.2 MCV 84 MCH 28.0 MCHC 33.4 RDW 14.6 H Plt Count 169 Sodium 140.9 Potassium 4.0 Chloride 108 H Carbon Dioxide 27 Anion Gap 6 BUN 13 Creatinine 0.96 Est GFR ( Amer) > 60 Est GFR (Non-Af Amer) > 60 Glucose 91 Calcium 9.5 Triglycerides 83 Cholesterol 137.92 LDL Cholesterol Direct 88 VLDL Cholesterol 17.0 HDL Cholesterol 37 L Urine Color YELLOW Urine Appearance CLEAR Urine pH 6.0 Ur Specific [place] 1.011 Urine Protein NEGATIVE Urine Glucose (UA) NEGATIVE Urine Ketones 20 H Urine Blood NEGATIVE Urine Nitrite NEGATIVE Ur Leukocyte Esterase NEGATIVE Urine WBC (Auto) 1 Urine RBC (Auto) 0 Impressions: Chest X-Ray 04/03/17 20:04 IMPRESSION: NO SIGNIFICANT RADIOGRAPHIC FINDING IN THE CHEST. Assessment & Plan - Diagnosis (1) Flank pain Is this a current diagnosis for this admission?: Yes Plan: Improved (2) Relapsing chronic pancreatitis Is this a current diagnosis for this admission?: Yes Plan: Continue current management - Time Time Spent with patient: 15-24 minutes Medications reviewed and adjusted accordingly: Yes Anticipated discharge: Home Within: within 24 hours - Inpatient Certification Based on my medical assessment, after consideration of the patient's comorbidities, presenting symptoms, or acuity I expect that the services needed warrant INPATIENT care.: Yes I certify that my determination is in accordance with my understanding of Medicare's requirements for reasonable and necessary INPATIENT services [42 CFR 412.3e].: Yes Medical Necessity: Need For IV Fluids, Need for Pain Control
[2017-04-04] MEDS ORDERED: DOXEPIN HCL 25 MG CAPSULE PO SCH ×2 (22:00)
[2017-04-05] MEDS: RINGERS SOLUTION,LACTATED 1,000 ML IV PRN (01:24)
[2017-04-05 08:03] LABS: ALANINE AMINOTRANSFERASE 111 U/L (21-72); ALBUMIN 3.8 g/dL (3.5-5.0); ALKALINE PHOSPHATASE 47 U/L (38-126); ANION GAP 10 (5-19); ASPARTATE AMINO TRANSFERASE 61 U/L (17-59); BILIRUBIN,DIRECT 0.3 mg/dL (0.0-0.4); BILIRUBIN,TOTAL 0.4 mg/dL (0.2-1.3); BLOOD UREA NITROGEN 10 mg/dL (7-20); CALCIUM 9.8 mg/dL (8.4-10.2); CARBON DIOXIDE 23 mmol/L (22-30); CHLORIDE 109 mmol/L (98-107); GLUCOSE 74 mg/dL (75-110); SODIUM 141.8 mmol/L (137-145); TOTAL PROTEIN 6.4 g/dL (6.3-8.2)
[2017-04-05 08:10] VITALS: BP 150/85
--- NOTE | 2017-04-05 12:38 | PDOC DISCHARGE SUMMARY ---
General - Admit/Disc Date/PCP Admission Date/Primary Care Provider: 04/03/17 20:29 SHAWN ZAMAN MD Discharge Date: 04/05/17 - Discharge Diagnosis (1) Flank pain Is this a current diagnosis for this admission?: Yes (2) Relapsing chronic pancreatitis Is this a current diagnosis for this admission?: Yes - Additional Information Resuscitation Status: Full Code Prescriptions: Gabapentin 300 mg PO TIDP PRN #14 capsule PRN Reason: Tizanidine HCl [Zanaflex 4 Mg Tablet] 4 mg PO TIDP PRN #14 tablet PRN Reason: Home Medications: Doxepin HCl [Sinequan 25 mg Capsule] 25 mg PO QHS 04/04/17 Gabapentin 300 mg PO TIDP PRN #14 capsule 04/05/17 Tizanidine HCl [Zanaflex 4 Mg Tablet] 4 mg PO TIDP PRN #14 tablet 04/05/17 History of Present Illness History of Present Illness: VIKRAM LOVELL is a 57 year old male with a past medical history of elevated pancreatic enzymes. He was first told several months ago of elevated lipase in [place]. He has recently seen a local biodiesel plant manager. He is scheduled for a repeat visit on on 04/06. Patient related that he had a coughing fit when he accidentally swallowed the wrong way. Following that he had pain in his right flank. He presented to the emergency room where he was found to have doubled his lipase when compared to when he was seen the prior date. He is referred to the hospitalist service for further management Hospital Course Hospital Course: Patient was kept on IV fluids and clear liquids with further trending down of lipase. He continued to have pain in the right side of his back which was deemed to be musculoskeletal. At the time of discharge patient was prescribed antispasmodic and gabapentin. He has been advised as to avoid any alcohol or any greasy foods. He is to keep up with the appointment with the biodiesel plant manager. Since patient was stable and improved prompted to discharge under stable condition Physical Exam Vital Signs: Temp Pulse Resp BP Pulse Ox 97.9 F 66 16 140/77 H 100 04/04/17 23:15 04/04/17 23:15 04/04/17 23:15 04/04/17 23:15 04/04/17 23:15 Intake & Output 01/27/18 01/28/18 01/29/18 06:59 06:59 06:59 Intake Total 4380 Output Total 600 Balance 3780 Weight 102.9 kg 102.9 kg General appearance: PRESENT: no acute distress, obese Head exam: PRESENT: atraumatic, normocephalic Eye exam: PRESENT: conjunctiva pink, EOMI, PERRLA Ear exam: PRESENT: normal external ear exam Mouth exam: PRESENT: moist, neck supple Neck exam: PRESENT: full ROM. ABSENT: JVD, lymphadenopathy, tenderness Respiratory exam: PRESENT: clear to auscultation justen Cardiovascular exam: PRESENT: RRR. ABSENT: diastolic murmur, systolic murmur Vascular exam: PRESENT: normal capillary refill GI/Abdominal exam: PRESENT: normal bowel sounds, soft. ABSENT: tenderness Extremities exam: ABSENT: clubbing, full ROM, joint swelling, pedal edema Musculoskeletal exam: PRESENT: ambulatory, full ROM, other - Tenderness reproduced upon palpation of right costovertebral angle Neurological exam: PRESENT: alert, awake, oriented to person, oriented to place , oriented to time, oriented to situation, CN II-XII grossly intact Psychiatric exam: PRESENT: appropriate affect, normal mood Skin exam: PRESENT: intact, normal color Results Laboratory Results: 04/04/17 04:26 04/04/17 04:26 04/05/17 03:52 Lipase 404.8 H Impressions: Chest X-Ray 04/03/17 20:04 IMPRESSION: NO SIGNIFICANT RADIOGRAPHIC FINDING IN THE CHEST. Plan Discharge Plan: Discharge home Time Spent: Less than 30 Minutes
== END 2017-04-05 09:11 | disposition home or self-care (01) ==
LOC: ER 17:33 → EH 20:29 → INTOOBSV 20:29 → 5 04-04 02:22
PROVIDERS: ADMIT Internal Medicine; ATTEND Internal Medicine
DX: R10.9 Unspecified abdominal pain (principal); K86.1 Other chronic pancreatitis; F41.9 Anxiety disorder, unspecified; F32.9 Major depressive disorder, single episode, unspecified; Z79.899 Other long term (current) drug therapy; Z87.891 Personal history of nicotine dependence; R94.5 Abnormal results of liver function studies; Z96.89 Presence of other specified functional implants; Z98.890 Other specified postprocedural states; Z87.442 Personal history of urinary calculi; Z87.19 Personal history of other diseases of the digestive system
CPT/HCPCS: 99284; 36415 ×3; 82150; 82550; 83690 ×2; 85025; 85027; 80048; 80053 ×2; 81001 ×2; 80061; 71046; G0378 ×4; J3490 ×2; J1170; J7030; J7120 ×2; S0028

== ENCOUNTER 2019-07-27 17:58 | Emergency (ER) | payer OTHER ==
--- NOTE | 2019-07-27 18:56 | RADIOLOGY REPORT (SQ) ---
EXAM DESCRIPTION: CT HEAD WITHOUT IMAGES COMPLETED DATE/TIME: 07/27/2019 6:28 pm REASON FOR STUDY: altered mental status acute COMPARISON: None. TECHNIQUE: Axial images acquired through the brain without intravenous contrast. Images reviewed wi th bone, brain and subdural windows. Additional sagittal and coronal reconstructions were generated. Images stored on PACS. All CT scanners at this facility use dose modulation, iterative reconstruction, and/or weight based d osing when appropriate to reduce radiation dose to as low as reasonably achievable (ALARA). [facility]: Dose Right [facility]: CareDose [facility]: Dose Right [facility]: Teradose 4D [facility]: Smart Analytics Quotient RADIATION DOSE: CT Rad equipment meets quality standard of care and radiation dose reduction techniq ues were employed. CTDIvol: 53.2 mGy. DLP: 1124 mGy-cm. LIMITATIONS: None. FINDINGS: VENTRICLES: Mildly prominent. The cisterns are patent. CEREBRUM: No masses. No hemorrhage. No midline shift. No evidence for acute infarction. Normal gra y/white matter differentiation. No areas of low density in the white matter. CEREBELLUM: No masses. No hemorrhage. No alteration of density. No evidence for acute infarction. EXTRAAXIAL SPACES: No fluid collections. No masses. ORBITS AND GLOBE: No intra- or extraconal masses. Normal contour of globe without masses. CALVARIUM: No fracture. PARANASAL SINUSES: No fluid or mucosal thickening. SOFT TISSUES: No mass or hematoma. OTHER: A few small subcentimeter calcifications in the region of the tonsils may be related prior in flammatory changes. IMPRESSION: 1. No acute intracranial abnormality. EVIDENCE OF ACUTE STROKE: NO COMMENT: Quality ID # [id number]: Final reports with documentation of one or more dose reduction techniques (e.g., Automated exposure control, adjustment of the mA and/or kV according to patient size, use of iterative reconstruction technique) TECHNICAL DOCUMENTATION: JOB ID: [id number] 2010 [employer]- All Rights Reserved Reading location - IP/workstation name: [email or web address]
--- NOTE | 2019-07-27 19:00 | RADIOLOGY REPORT (SQ) ---
EXAM DESCRIPTION: CHEST SINGLE VIEW IMAGES COMPLETED DATE/TIME: 07/27/2019 6:51 pm REASON FOR STUDY: altered mental status COMPARISON: 04/03/2017 EXAM PARAMETERS: NUMBER OF VIEWS: One view. TECHNIQUE: Single frontal radiographic view of the chest acquired. RADIATION DOSE: NA LIMITATIONS: None. FINDINGS: LUNGS AND PLEURA: No opacities, masses or pneumothorax. No pleural effusion. MEDIASTINUM AND HILAR STRUCTURES: No masses. Contour normal. HEART AND VASCULAR STRUCTURES: Heart normal in size. Normal vasculature. BONES: No acute findings. HARDWARE: None in the chest. OTHER: No other significant finding. IMPRESSION: 1. No significant interval changes since the prior examination dated 04/03/2017. No acu te findings. TECHNICAL DOCUMENTATION: JOB ID: [id number] 2010 [employer]- All Rights Reserved Reading location - IP/workstation name: [email or web address]
[2019-07-27 19:02] LABS: INTERNATIONAL RATION (INR) 1.06; PROTHROMBIN TIME 13.9 SEC (11.4-15.4)
[2019-07-27 19:03] LABS: PARTIAL THROMBOPLASTIN TIME 29.1 SEC (23.5-35.8)
[2019-07-27 19:06] LABS: ABSOLUTE LYMPHOCYTES (AUTO) 1.7 10^3/uL (0.5-4.7); ABSOLUTE MONOCYTES (AUTO) 0.3 10^3/uL (0.1-1.4); ABSOLUTE NEUT (AUTO) 8.1 10^3/uL (1.7-8.2); BASOPHILS % (AUTO) 0.3 % (0-2); EOSINOPHILS % (AUTO) 0.4 % (0-6); HEMATOCRIT 42.6 % (37.9-51.0); HEMOGLOBIN 14.5 g/dL (13.5-17.0); LYMPHOCYTES % (AUTO) 16.6 % (13-45); MEAN CORPUSCULAR HEMOGLOBIN 27.8 pg (27.0-33.4); MEAN CORPUSCULAR VOLUME 82 fl (80-97); MONOCYTES % (AUTO) 3.2 % (3-13); PLATELET COUNT 188 10^3/uL (150-450); RED BLOOD COUNT 5.21 10^6/uL (4.35-5.55); SEGMENTED NEUTROPHILS % (AUTO) 79.5 % (42-78); TOTAL CELLS COUNTED % (AUTO) 100 %; WHITE BLOOD COUNT 10.2 10^3/uL (4.0-10.5)
--- NOTE | 2019-07-27 19:19 | ER Document Report ---
ED General - General TRAVEL OUTSIDE OF THE [place] IN LAST 30 DAYS: No - Related Data Home Medications: Prilosec, metformin <DHEERAJ HERNDON - Last Filed: 07/27/19 22:08> <FLORYMARCIO Yousif JR - Last Filed: 07/27/19 23:15> - General Chief Complaint: Memory Loss Stated Complaint: ALTERED MENTAL STATUS Time Seen by Provider: 07/27/19 18:19 Primary Care Provider: SHAWN ZAMAN MD [Primary Care Provider] - Follow up as needed - HPI Notes: Patient is a 59-year-old male who presents to the emergency department for evaluation. He was with his girlfriend, eating, when at 1620 he developed word finding difficulties and confusion. He kept asking the same questions over and over. He was brought to the emergency department for evaluation via EMS. The history is augmented by his girlfriend. He said no recent head trauma. He denies any pain. (DHEERAJ HERNDON) - Related Data Allergies/Adverse Reactions: No Known Allergies Allergy (Verified 04/03/17 17:34) Past Medical History - General Information source: Patient - Social History Smoking Status: Never Smoker Chew tobacco use (# tins/day): No Frequency of alcohol use: None Drug Abuse: Marijuana Family History: None Patient has homicidal ideation: No Endocrine Medical History: Reports: Hx Diabetes Mellitus Type 2 - "Prediabetic" Renal/ Medical History: Reports: Hx Kidney Stones. Denies: Hx Peritoneal Dialysis GI Medical History: Reports: Hx Gastroesophageal Reflux Disease Psychiatric Medical History: Reports: Hx Post Traumatic Stress Disorder Past Surgical History: Reports: Hx Abdominal Surgery - LAP. FUNDOPLICATION, Hx Kidney (Renal Surgery) - kidney stents for stones, Hx Orthopedic Surgery - bilateral knees <DHEERAJ HERNDON - Last Filed: 07/27/19 22:08> Review of Systems - Review of Systems Neurological/Psychological: See HPI -: Yes All other systems reviewed and negative <DHEERAJ HERNDON - Last Filed: 07/27/19 22:08> Physical Exam <DHEERAJ HERNDON - Last Filed: 07/27/19 22:08> - Vital signs Vitals: Pulse Ox 99 07/27/19 18:27 - Notes Notes: This is a very pleasant 59-year-old male who is very anxious in appearance, but appears his stated age, no acute distress. Vital signs reviewed, please refer to chart. Head is normocephalic, atraumatic. Pupils equal round, reactive to light. Neck is supple without meningismus. Heart is regular rate and rhythm. Lungs are clear to auscultation bilaterally. Abdomen is soft, nontender, normoactive bowel sounds throughout. Extremities without cyanosis, clubbing. Posterior calves are nontender. Peripheral pulses are equal. Skin is warm and dry. Patient is awake, alert. He tells me is 2019. He cannot remember the president, but is able to identify his girlfriend by name. He repeatedly asks the same questions, offers the same information. He is able to follow instructions without difficulty. Cranial nerves II - XII are grossly intact without focal neurological deficits. Strength is plus 5 out of 5 bilateral upper and lower extremities. Sensation is intact. Reflexes symmetrical. Intact [id number], rapid alternating movements, [id number]. (DHEERAJ HERNDON) Course - Laboratory Result Diagrams: 07/27/19 18:35 07/27/19 18:35 <DHEERAJ HERNDON - Last Filed: 07/27/19 22:08> - Laboratory Result Diagrams: 07/27/19 18:35 07/27/19 18:35 <MARCIO RUTH JR - Last Filed: 07/27/19 23:15> - Re-evaluation Re-evalutation: 07/27/19 19:18 Patient presents to the emergency department for evaluation. His findings are most consistent with transient global amnesia. Stroke work-up is initiated. Patient is placed on a environmental monitoring technician. CT scan was ordered and found to be unremarkable. Patient is stable at this time, although his amnesia seems to still be present. We will continue to monitor. 07/27/19 22:08 Patient has had some improvement in memory. He still does not remember the incident nor how he got here, but he does continue to recognize me. Remembers aspects of our conversations. At this point I do suspect transient global amnesia. He continues to have an otherwise totally unremarkable neurological e xam. Awaiting MRI results. Assuming MRI is normal, patient has a significant other and son who feel comfortable taking him home. He understands he needs to call his primary care provider first thing tomorrow morning for follow-up. He is to return to the ED with worsening. (DHEERAJ HERNDON) - Vital Signs Vital signs: Temp Pulse Resp BP Pulse Ox 97.9 F 72 18 156/101 H 98 07/27/19 18:59 07/27/19 22:07 07/27/19 22:07 07/27/19 22:07 07/27/19 22:07 - Laboratory Laboratory results interpreted by me: 07/27/19 07/27/19 07/27/19 18:35 18:35 18:35 RDW 16.0 H Seg Neutrophils % 79.5 H Carbon Dioxide 21 L Glucose 118 H Calcium 10.5 H ALT 85 H Total Protein 8.4 H Urine Ketones TRACE H Critical Care Note - Critical Care Note Total time excluding time spent on procedures (mins): 90 <MARCIO RUTH JR - Last Filed: 07/27/19 23:15> - Critical Care Note Comments: MRI NEGATIVE for CVA (MARCIO RUTH JR) Discharge <DHEERAJ HERNDON - Last Filed: 07/27/19 22:08> <MARCIO RUTH JR - Last Filed: 07/27/19 23:15> - Discharge Clinical Impression: Transient global amnesia Condition: Stable Disposition: HOME, SELF-CARE Instructions: Transient Global Amnesia ([facility]) Additional Instructions: Your findings tonight are consistent with transient global amnesia. Please call your primary care provider tomorrow for a follow-up appointment as soon as possible. If you develop difficulty seeing, speaking, swallowing, difficulty moving an arm or leg, or any other new or concerning symptoms, please return immediately to the emergency department for reevaluation. Referrals: SHAWN ZAMAN MD [Primary Care Provider] - Follow up as needed
[2019-07-27 19:34] LABS: ALBUMIN 4.9 g/dL (3.5-5.0); ALKALINE PHOSPHATASE 85 U/L (38-126); ANION GAP 11 (5-19); ASPARTATE AMINO TRANSFERASE 59 U/L (17-59); BILIRUBIN,TOTAL 0.5 mg/dL (0.2-1.3); BLOOD UREA NITROGEN 15 mg/dL (7-20); CALCIUM 10.5 mg/dL (8.4-10.2); CARBON DIOXIDE 21 mmol/L (22-30); CHLORIDE 106 mmol/L (98-107); CREATINE KINASE 118 U/L (55-170); GLUCOSE 118 mg/dL (75-110); POTASSIUM 4.3 mmol/L (3.6-5.0); TOTAL PROTEIN 8.4 g/dL (6.3-8.2)
[2019-07-27 19:37] LABS: ALCOHOL < 10 mg/dL (NONE DETECTED)
[2019-07-27 19:45] LABS: CREATINE KINASE MB 1.27 ng/mL (<4.55)
[2019-07-27 19:46] LABS: TROPONIN I < 0.012 ng/mL
[2019-07-27 20:50] LABS: APPEARANCE,URINE CLEAR; BILIRUBIN,URINE NEGATIVE (NEGATIVE); COLOR,URINE STRAW; GLUCOSE, URINE NEGATIVE (NEGATIVE); KETONES,URINE TRACE mg/dL (NEGATIVE); LEUKOCYTE ESTERASE,URINE NEGATIVE (NEGATIVE); NITRITE,URINE NEGATIVE (NEGATIVE); PROTEIN,URINE NEGATIVE (NEGATIVE); URINE SPECIFIC GRAVITY 1.002; UROBILINOGEN,URINE NEGATIVE mg/dL (<2.0)
[2019-07-27 21:08] LABS: URINE AMPHETAMINES SCREEN NEGATIVE; URINE BARBITURATES SCREEN NEGATIVE; URINE BENZODIAZEPINES SCREEN NEGATIVE; URINE COCAINE SCREEN NEGATIVE; URINE METHADONE SCREEN NEGATIVE; URINE PHENCYCLIDINE SCREEN NEGATIVE
[2019-07-27 21:11] LABS: URINE MARIJUANA (THC) SCREEN UNCONFIRMED POSITIVE
--- NOTE | 2019-07-27 22:15 | RADIOLOGY REPORT (SQ) ---
CLINICAL INDICATION: transient global amnesia. . TECHNIQUE: Unenhanced multi-planar, multi-sequence MR imaging of the brain was performed. COMPARISON: None. CORRELATION: CT brain today. Imaging only. No report. FINDINGS: Diffusion-weighted imaging demonstrates no area of restricted diffusion to suggest acute infarction. No intracranial hemorrhage, midline shift, mass effect, or extra-axial fluid collection is demonstrated. Brain volume and ventricular system are within normal limits for age. Brain parenchyma demonstrates normal morphology and signal characteristics. Ventricles and extracerebral spaces are within normal limits, for age. The visualized paranasal sinuses are grossly clear. The orbits and eyeballs are unremarkable. The mastoid air cells are clear. . No acute intracranial process or space occupying mass is identified. IMPRESSION: No acute intracranial process is identified. The cause of the patient's amnesia is not identified on this examination.
--- NOTE | 2019-07-27 22:29 | EKG REPORT ---
SEVERITY:- ABNORMAL ECG - SINUS RHYTHM LEFT VENTRICULAR HYPERTROPHY : Confirmed by: Kiki Pearce MD 27-Jul-2019 22:28:39
[2019-07-27 23:29] VITALS: BP 150/97
== END 2019-07-27 23:45 | disposition home or self-care (01) ==
LOC: ER 17:58
DX: G45.4 Transient global amnesia (principal); R41.0 Disorientation, unspecified; E11.9 Type 2 diabetes mellitus without complications; F12.10 Cannabis abuse, uncomplicated
CPT/HCPCS: 36415; 70450; 70551; 71045; 80053; 80307; 81001; 82550; 82553; 83735; 84484; 85025; 85610; 85730; 93005; 93010; 99285

== ENCOUNTER 2020-02-20 20:54 | Emergency (ER) | payer OTHER ==
--- NOTE | 2020-02-20 21:39 | ER Document Report ---
ED Medical Screen (RME) - General Chief Complaint: Blood Pressure Problem Stated Complaint: BLOOD PRESSURE Time Seen by Provider: 02/20/20 21:19 Primary Care Provider: NHUNG STANLEY MD [Primary Care Provider] - Follow up as needed Notes: Patient is a 60-year-old male who presents emergency department with high blood pressure readings at home. Patient states that he feels his blood pressure is high because of his anxiety. Patient has a history of PTSD from when he was a child. He is not currently on any anxiety medication. States that he is suicidal, but has no current plan. Exam: Patient appears anxious. I have greeted and performed a rapid initial assessment of this patient. A comprehensive ED assessment and evaluation of the patient, analysis of test results and completion of medical decision making process will be conducted by an additional ED providers. TRAVEL OUTSIDE OF THE [place] IN LAST 30 DAYS: No - Related Data Allergies/Adverse Reactions: No Known Allergies Allergy (Verified 04/03/17 17:34) Past Medical History Endocrine Medical History: Reports: Hx Diabetes Mellitus Type 2 - "Prediabetic" Renal/ Medical History: Reports: Hx Kidney Stones. Denies: Hx Peritoneal Dialysis GI Medical History: Reports: Hx Gastroesophageal Reflux Disease Psychiatric Medical History: Reports: Hx Post Traumatic Stress Disorder Past Surgical History: Reports: Hx Abdominal Surgery - LAP. FUNDOPLICATION, Hx Kidney (Renal Surgery) - kidney stents for stones, Hx Orthopedic Surgery - bilateral knees Doctor's Discharge - Discharge Referrals: NHUNG STANLEY MD [Primary Care Provider] - Follow up as needed
--- NOTE | 2020-02-20 22:18 | EKG REPORT ---
SEVERITY:- ABNORMAL ECG - SINUS RHYTHM PROBABLE LEFT ATRIAL ABNORMALITY LEFT VENTRICULAR HYPERTROPHY : Confirmed by: Kiki Pearce MD 20-Feb-2020 22:17:37
[2020-02-20 22:22] LABS: ABSOLUTE EOSINOPHILS # (AUTO) 0.1 10^3/uL (0.0-0.6); ABSOLUTE LYMPHOCYTES (AUTO) 2.3 10^3/uL (0.5-4.7); ABSOLUTE MONOCYTES (AUTO) 0.5 10^3/uL (0.1-1.4); ABSOLUTE NEUT (AUTO) 4.9 10^3/uL (1.7-8.2); BASOPHILS % (AUTO) 0.4 % (0-2); EOSINOPHILS % (AUTO) 1.8 % (0-6); HEMATOCRIT 42.5 % (37.9-51.0); HEMOGLOBIN 14.3 g/dL (13.5-17.0); LYMPHOCYTES % (AUTO) 28.9 % (13-45); MEAN CORPUSCULAR HEMOGLOBIN 27.8 pg (27.0-33.4); MEAN CORPUSCULAR HGB CONC 33.7 g/dL (32.0-36.0); MEAN CORPUSCULAR VOLUME 83 fl (80-97); MONOCYTES % (AUTO) 6.3 % (3-13); PLATELET COUNT 189 10^3/uL (150-450); RED BLOOD COUNT 5.15 10^6/uL (4.35-5.55); RED CELL DISTRIBUTION WIDTH 15.1 % (11.5-14.0); SEGMENTED NEUTROPHILS % (AUTO) 62.6 % (42-78); TOTAL CELLS COUNTED % (AUTO) 100 %; WHITE BLOOD COUNT 7.8 10^3/uL (4.0-10.5)
[2020-02-20 22:36] LABS: APPEARANCE,URINE SLIGHTLY-CLOUDY; BILIRUBIN,URINE NEGATIVE (NEGATIVE); COLOR,URINE YELLOW; GLUCOSE, URINE NEGATIVE (NEGATIVE); KETONES,URINE NEGATIVE (NEGATIVE); LEUKOCYTE ESTERASE,URINE NEGATIVE (NEGATIVE); NITRITE,URINE NEGATIVE (NEGATIVE); PROTEIN,URINE NEGATIVE (NEGATIVE); URINE SPECIFIC GRAVITY 1.015; UROBILINOGEN,URINE NEGATIVE mg/dL (<2.0)
[2020-02-20] MEDS ORDERED: LORAZEPAM 1 MG TABLET PO ONE (22:36)
[2020-02-20] MEDS ORDERED: DOXEPIN HCL 25 MG CAPSULE PO ONE (22:37)
[2020-02-20 22:45] LABS: URINE AMPHETAMINES SCREEN NEGATIVE; URINE BARBITURATES SCREEN NEGATIVE; URINE BENZODIAZEPINES SCREEN NEGATIVE; URINE COCAINE SCREEN NEGATIVE; URINE METHADONE SCREEN NEGATIVE; URINE PHENCYCLIDINE SCREEN NEGATIVE
[2020-02-20 22:47] LABS: URINE MARIJUANA (THC) SCREEN UNCONFIRMED POSITIVE
[2020-02-20 22:50] LABS: ALBUMIN 4.5 g/dL (3.5-5.0); ALKALINE PHOSPHATASE 78 U/L (38-126); ANION GAP 9 (5-19); ASPARTATE AMINO TRANSFERASE 56 U/L (17-59); BILIRUBIN,DIRECT 0.1 mg/dL (0.0-0.4); BILIRUBIN,TOTAL 0.4 mg/dL (0.2-1.3); BLOOD UREA NITROGEN 14 mg/dL (7-20); CARBON DIOXIDE 25 mmol/L (22-30); CHLORIDE 105 mmol/L (98-107); GLUCOSE 149 mg/dL (75-110); POTASSIUM 4.4 mmol/L (3.6-5.0); TOTAL PROTEIN 7.8 g/dL (6.3-8.2)
[2020-02-20 22:51] LABS: ACETAMINOPHEN < 10 ug/mL (10-30); ALCOHOL < 10 mg/dL (NONE DETECTED); SALICYLATE < 1.0 mg/dL (2.0-20.0)
--- NOTE | 2020-02-21 00:02 | ER Document Report ---
ED General - General Mode of Arrival: Ambulatory Information source: Patient TRAVEL OUTSIDE OF THE [place] IN LAST 30 DAYS: No - Related Data Home Medications: omeprazole, doxipin, vitamins <CANDY CHRISTIANSON - Last Filed: 02/21/20 00:04> <NAHEED RIDLEY - Last Filed: 02/21/20 11:18> <VIKRAM ROSALES - Last Filed: 02/21/20 11:50> - General Chief Complaint: Psych Problem Stated Complaint: BLOOD PRESSURE Time Seen by Provider: 02/20/20 21:19 Primary Care Provider: [facility] [Outside] - Follow up as needed [facility] [Outside] - Follow up as needed NHUNG STANLEY MD [Primary Care Provider] - Follow up as needed Notes: 60-year-old male patient with history of PTSD presenting to the emergency department concern for anxiety. He states at home he was feeling very anxious so he took his blood pressure. He states his blood pressure was elevated so he became more nervous and anxious. He is not on any medications for anxiety. He states he was feeling a little suicidal but did not have any plan. He denies any history of suicide attempts. (CANDY CHRISTIANSON) - Related Data Allergies/Adverse Reactions: No Known Allergies Allergy (Verified 04/03/17 17:34) Past Medical History - General Information source: Patient - Social History Smoking Status: Never Smoker Family History: None Patient has homicidal ideation: No Endocrine Medical History: Reports: Hx Diabetes Mellitus Type 2 - "Prediabetic" Renal/ Medical History: Reports: Hx Kidney Stones. Denies: Hx Peritoneal Di alysis GI Medical History: Reports: Hx Gastroesophageal Reflux Disease Psychiatric Medical History: Reports: Hx Post Traumatic Stress Disorder Past Surgical History: Reports: Hx Abdominal Surgery - LAP. FUNDOPLICATION, Hx Kidney (Renal Surgery) - kidney stents for stones, Hx Orthopedic Surgery - bilateral knees <CANDY CHRISTIANSON - Last Filed: 02/21/20 00:04> Review of Systems - Review of Systems Constitutional: Other - elevated BP Neurological/Psychological: Anxiety <CANDY CHRISTIANSON - Last Filed: 02/21/20 00:04> Physical Exam <CANDY CHRISTIANSON - Last Filed: 02/21/20 00:04> - Vital signs Vitals: Temp Pulse Resp BP Pulse Ox 98 F 81 16 156/95 H 97 02/20/20 21:37 02/20/20 21:37 02/20/20 21:37 02/20/20 21:37 02/20/20 21:37 - Notes Notes: PHYSICAL EXAMINATION: GENERAL: Well-appearing, well-nourished and in no acute distress. HEAD: Atraumatic, normocephalic. EYES: Pupils equal round and reactive to light, extraocular movements intact, sclera anicteric, conjunctiva are normal. ENT: Nares patent, oropharynx clear without exudates. Moist mucous membranes. NECK: Normal range of motion, supple without lymphadenopathy LUNGS: Breath sounds clear to auscultation bilaterally and equal. No wheezes rales or rhonchi. HEART: Regular rate and rhythm without murmurs ABDOMEN: Soft, nontender, nondistended abdomen. No guarding, no rebound. No masses appreciated. Musculoskeletal: Normal range of motion, no pitting or edema. No cyanosis. NEUROLOGICAL: Cranial nerves grossly intact. Normal speech, normal gait. Normal sensory, motor exams PSYCH: Anxious, pressured speech. SKIN: Warm, Dry, normal turgor, no rashes or lesions noted. (CANDY CHRISTIANSON) Course - Laboratory Results Result Diagrams: 02/20/20 21:59 02/20/20 21:59 <CANDY CHRISTIANSON - Last Filed: 02/21/20 00:04> - Laboratory Results Result Diagrams: 02/20/20 21:59 02/20/20 21:59 <NAHEED RIDLEY - Last Filed: 02/21/20 11:18> - Laboratory Results Result Diagrams: 02/20/20 21:59 02/20/20 21:59 Critical Laboratory Results Reviewed: No Critical Results - Radiology Results Critical Radiology Results Reviewed: No Critical Results <VIKRAM ROSALES - Last Filed: 02/21/20 11:50> - Re-evaluation Re-evalutation: Patient is medically cleared at this time. He does not meet IVC criteria. He has passive suicidal thoughts but no plan, no homicidal ideations. He is calm and cooperative, he is requesting something for his anxiety and to sleep. We will give him a dose of\\medication here in the emergency department and will reevaluate him. (CANDY CHRISTIANSON) - Vital Signs Vital signs: Temp Pulse Resp BP Pulse Ox 97.9 F 91 17 166/98 H 100 02/21/20 07:19 02/21/20 07:19 02/21/20 07:19 02/21/20 07:19 02/21/20 07:19 - Laboratory Results Laboratory Results Interpreted: 02/20/20 02/20/20 21:59 21:59 RDW 15.1 H Glucose 149 H ALT 89 H Salicylates < 1.0 L Acetaminophen < 10 L Discharge <CNADY CHRISTIANSON - Last Filed: 02/21/20 00:04> <NAHEED RIDLEY - Last Filed: 02/21/20 11:18> <VIKRAM ROSALES - Last Filed: 02/21/20 11:50> - Discharge Clinical Impression: Anxiety Condition: Stable Disposition: HOME, SELF-CARE Additional Instructions: You have been evaluated by both medical and behavioral health teams for anxiety. You have been deemed appropriate for discharge. While in the emergency department you received the following services/or had access to: Medical screening and assessment, nursing services, dietary services, pharmacological services, one-on-one counseling and/or psychotherapy, environmental services, and continuous observation by a patient health and safety advisor. Anxiety The physician feels that some of your health problems are being caused by anxiety. Anxiety affects your health in many ways. Anxiety alone can cause palpitations, sweats, chest pains, abdominal pains, shortness of breath, and headaches. It contributes to ulcer disease, high blood pressure, irritable bowel syndrome, and has been shown to cause flare-ups of many other diseases. Anxiety is not a simple disorder to treat. If the anxiety is due to recent life stresses, you may simply need time to "work through" the changes. If the anxiety is due to an underlying unhappiness with yourself or due to psychiatric disturbance, professional help will be needed. Your physician can refer you for further help if needed. Anti-anxiety medication is occasionally given if the stress is acute or if you are having trouble sleeping. Chronic or frequent use of these medications i s not a good idea because the body becomes reliant on it, preventing you from dealing with life's normal stresses. Suicidal Ideation Suicidal ideation is a common medical term for thoughts about suicide, which may be as detailed as a formulated plan, without the suicidal act itself. Although most people who undergo suicidal ideation do not commit suicide, some go on to make suicide attempts. The range of suicidal ideation varies greatly from fleeting to detailed planning, role playing, and unsuccessful attempts. While thoughts about suicide are common, most people do not carry out serious actions to commit suicide. However, based upon your evaluation and discussion with you, we believe you are not currently at risk to act upon your thoughts of suicide. Therefore, you will be discharged home. Follow up care: You are currently involved in outpatient therapy with Rebeca Barrett. You mentioned feeling it is ineffective. You are recommended to continue services with her un til you are able to establish services with a new provider. You have been given a community outpatient referral list to include phone numbers for [facility] and [facility] mobile crisis. If you experience worsening or a significant change in your symptoms, notify the physician immediately, utilize mobile crisis, or return to the Emergency Department at any time for re-evaluation. Dr. Rivas was consulted to care management of this patient; attending physicians in agreement with recommendations and disposition. Referrals: NHUNG STANLEY MD [Primary Care Provider] - Follow up as needed [facility] [Outside] - Follow up as needed [facility] [Outside] - Follow up as needed
--- NOTE | 2020-02-21 10:52 | PSYCHOLOGICAL NOTE ---
Psych Note - Psych Note Date seen by psych provider: 02/21/20 Time seen by psych provider: 10:36 Psych Note: Collateral Information: From [phone] spoke to patient's girlfriend of over a year Martha ([phone]) via telephone. She stated patient "is holding back things from his childhood, he was severely bullied as a kid and in High School, he posted some things on Facebook, he was called out/confronted about what he posted, he felt bad, he couldn't stop thinking about of all it, he was obsessing over it, it sent him spiraling, and when we checked his blood pressure it was 156 over something so we decided he needed to go to the hospital." She stated he drove himself because he knew she would not be able to come in with COVID. She denied patient making any statements or gestures related to suicidal ideation. She denied previous attempts at harming/hurting/trying to kill self. Girlfriend noted patient sees a therapist, commented "she doesn't seem to be helping and he agrees so is supposed to ask his doctor for another therapist." She could not recall where patient receives services. She noted he takes Doxepin for sleep at home and had been worried he would not get sleep here if he did not get it. She was informed he did get something for anxiety and sleep to assist with his symptoms. Girlfriend confirmed patient has a social security appointment this afternoon. 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 She reported "he seemed back to normal again when she spoke to him."
--- NOTE | 2020-02-21 11:48 | ER Document Report ---
Doctor's Note Notes: 02/21/20 11:47 Psych evaluated patient, they cleared patient for discharge. He does have a therapist set up for outpatient treatment. He has no active SI/HI. Vital signs stable. He is alert and oriented with no complaints in the ED will discharge home with return factors discussed PCP follow-up this week as well as therapist.
[2020-02-21 12:07] VITALS: BP 159/83
--- NOTE | 2020-02-21 12:40 | PSYCHOLOGICAL NOTE ---
Psych Note - Psych Note Date seen by psych provider: 02/21/20 Time seen by psych provider: 10:19 Psych Note: Reason for Consult: suicidal ideation Consent permissions: girlfrienBinta black [phone] Patient is a 60 year old male who was admitted to the ED via POV for passive suicidal ideation and anxiety. Patient is a retired [place] . He denies current suicidal ideation, plan, and intent. He denies homicidal ideation, plan, and intent. He reports that a friend said something mean on Facebook to him and he replied and made fun of his friend, also on Facebook. He reports after this, he started to feel bad and his anxiety began to increase. He reports feeling as if his blood pressure was high, took his blood pressure (which was high), and his girlfriend told him to come to the ED. He reports he is involved with therapy with Rebeca Barrett, [facility], but feels like it is not effective. He is inquiring for information about a new therapist. He is not taking any psychiatric medications. He denies suicide attempts in his past and denies inpatient hospitalizations. He reports history of PTSD from his childhood, depression, anxiety, and ADD, but states it is manageable on a daily basis with therapy and positive coping skills. Collateral was completed by the behavioral health team. Refer to Jolene Thomas note dated for today, 02.21.2020, for collateral with girlfriend. Patient was alert and oriented to self, person, place, time and situation. Mood was euphoric with congruent affect. He denies current suicidal and homicidal ideation, plan, and intent. Patient did not appear to be responding to internal stimuli as evidenced by fair eye contact and answering questions appropriately when addressed. Thought processes are linear and organized. Conversational speech was within normal limits for rate, tone and prosody. Intellectual abilities are estimated to be average. Insight, judgment and impulse control were fair as evidenced by coming to the ED when he began to feel anxious and noticed his high blood pressure. Patient engages appropriately. He demonstrates future forward goal oriented thinking as he has a social security appointment today at 1330 and is inquiring when he can be discharged because he does not want to miss the appointment (virtual); also asking to just have his cell phone if he is still in the ED so he can make the appointment. Clinical Presentation: passive suicidal ideation; anxiety IVC Criteria per [place] GS 122C Dangerous to others Within the relevant past the individual No has inflicted or attempted to inflict or threatened to inflict serious bodily harm on another AND No that there is a reasonable probability that this conduct will be repeated. OR No has acted in such a way as to create a substantial risk of serious bodily harm to another AND No that there is a reasonable probability that this conduct will be repeated. OR No has engaged in extreme destruction of property AND NO that there is a reasonable probability that this conduct will be repeated. Previous episodes of dangerousness to others, when applicable, may be considered when determining reasonable probability of future dangerous conduct. Clear, cogent, and convincing evidence that an individual has committed a homicide in the relevant past is prima facie evidence of dangerousness to others. Dangerous to self Within the relevant past the individual has done any of the following: acted in such a way as to show ALL of the following: No The individual would be unable without care, supervision, and the continued assistance of others not otherwise available, to exercise self- control, judgment, and discretion in the conduct of the individual's daily responsibilities and social relations or to satisfy the individual's need for nourishment, personal or medical care, detention, or self-protection and safety. AND No There is a reasonable probability of the individual suffering serious physical debilitation within the near future unless adequate treatment is given. A showing of behavior that is grossly irrational, of actions that the individual is unable to control, of behavior that is grossly inappropriate to the situation, or of other evidence of severely impaired insight and judgment shall create a prima facie inference that the individual is unable to care for himself or herself. OR Yes has attempted suicide or threatened suicide Passive SI was stated in the ED; denies current SI, plan, and intent AND No that there is a reasonable probability of suicide unless adequate treatment is given Denies current SI, plan, and intent; no suicidal history; has services in place; confirmed safety with girlfriend in which he lives with OR No has mutilated himself or herself or attempted to mutilate himself or herse lf AND No that there is a reasonable probability of serious self-mutilation unless adequate treatment is given. NOTE: Previous episodes of dangerousness to self, when applicable, may be considered when determining reasonable probability of physical debilitation, suicide, or self-mutilation. Impression\plan: Patient is cleared from psychiatric services. Patient was admitted to the ED with passive SI and anxiety. He denies current suicidal ideation, plan, and intent. He reports no suicidal history. He reports PTSD from his childhood trauma, depression, anxiety, and ADD, but reports he feels stable and can manage from day to day. He reports his increase in anxiety and passive SI came about after an argument with a friend on Facebook. His blood pressure began to increase and he and his girlfriend decided it was best to come to the ED and be evaluated. Patient has therapy in place with Rebeca, in private practice, but states he does not feel as if it is effective. He wants to start therapy with a new provider. Patient is encouraged to continue therapy until a new appointment is made in case of a long wait period. Patient was offered for behavioral health to make an appointment for him, however he stated he wanted to call and make it himself. He was given community resource sheet for outpatient services. Highlighted on the sheet was outpatient for to include [facility], [facility], and [facility]. He took the information and asked questions regarding services. He was also given information on mobile crisis, [facility] and [facility]. He was recommended if his symptoms worsened to come back to the ED, call his provider, utilize mobile crisis, or [facility]. Rivas was consulted to care management of this patient; attending physicians in agreement with recommendations and disposition.
== END 2020-02-21 12:07 | disposition home or self-care (01) ==
LOC: ER 20:54
DX: F41.9 Anxiety disorder, unspecified (principal); I10 Essential (primary) hypertension; R45.851 Suicidal ideations
CPT/HCPCS: 93005; 99284; 36415; 80307 ×4; 85025; 80053; 81001; 93010; J3490